=== PATIENT | male | born 1990 ===

== ENCOUNTER 2018-01-16 20:32 | Emergency (ER) | payer SELFPAY ==
--- NOTE | 2018-01-16 20:48 | ED PDOC ---
HPI: Psych/Substance Abuse Time Seen by Provider: 01/16/18 20:38 Chief Complaint (Nursing): Alcohol Ingestion Chief Complaint (Provider): Alcohol abuse ED Caveat: Uncooperative History Per: EMS History/Exam Limitations: intoxication Onset/Duration Of Symptoms: Days (today) Additional Complaint(s): Pt. found being aggressive at the bar. Police called and brought to the ER in handcuffs. Pt. aggressive and yelling at staff different things. Denies any pain. Admits to drinking etoh. Denies drugs. Limited H and P as pt. not cooperative and does not give appropriate responses to all questions. Past Medical History Reviewed: Nursing Documentation, Vital Signs Vital Signs: Last Vital Signs Temp Pulse Resp 18 01/16/18 20:36 BP Pulse Ox - Medical History Other PMH: unknown - Surgical History Other surgeries: unknown - Family History Family History: States: Unknown Family Hx - Allergies Allergies/Adverse Reactions: Allergies Allergy/AdvReac Type Severity Reaction Status Date / Time No Known Allergies Allergy Verified 01/16/18 20:36 Review of Systems Review Of Systems: ROS cannot be obtained secondary to pt's inabilty to answer questions. Physical Exam - Reviewed Nursing Documentation Reviewed: Yes Vital Signs Reviewed: Yes - Physical Exam Appears: Positive for: Uncomfortable Head Exam: Positive for: ATRAUMATIC, NORMAL INSPECTION, NORMOCEPHALIC Skin: Positive for: Normal Color, Warm, DRY Eye Exam: Positive for: Normal appearance, PERRL. Negative for: Periorbital swelling, Periorbital tenderness ENT: Positive for: Normal ENT Inspection Neck: Positive for: Normal, Painless ROM, Supple Cardiovascular/Chest: Positive for: Regular Rate, Rhythm Respiratory: Positive for: CNT, Normal Breath Sounds Gastrointestinal/Abdominal: Positive for: Normal Exam, Soft. Negative for: Tenderness Back: Positive for: Normal Inspection. Negative for: L CVA Tenderness, R CVA Tenderness Extremity: Positive for: Normal ROM. Negative for: Tenderness Neurologic/Psych: Positive for: Alert, Other (not cooperative and responding to questions selectively; moving all extremities and fighting with staff; aggressive.) - Laboratory Results Result Diagrams: 01/16/18 21:37 01/16/18 21:37 Interpretation Of Abn Labs: 175 alcohol - CT Scan/US ct Other Rad Studies (CT/US): Read By Radiologist Other Rad Interpretation: no acute - Progress ED Course And Treament: 2045: Pt. found to be aggressive and threat to self and staff. Will need to sedate due to acute psychosis likely from etoh abuse. 2352: Stable. Dr. Hampton to fu on sobriety. Here with alcohol intoxication. - Critical Care Total Time (In Min): 30 Documented Critical Care: Time excludes all time spent performint seperately billable procedures Disposition - Clinical Impression Clinical Impression: Alcohol abuse - Patient ED Disposition Is Patient to be Admitted: Transfer of Care - Disposition Disposition: Transfer of Care Disposition Time: 23:54 Condition: FAIR Patient Signed Over To: Karen Hampton
[2018-01-16 21:46] LABS: BASO % 0.2 % (0.0-2.0); EOS # 0.2 K/uL (0.0-0.7); EOS % 1.9 % (0.0-4.0); HEMOGLOBIN 14.7 g/dL (12.0-18.0); LYMPH # 1.5 K/uL (1.0-4.3); LYMPH % 17.7 % (20.0-40.0); MEAN CELL VOLUME 93.7 fl (80.0-94.0); MEAN CORPUSCULAR HEMOGLOBIN 32.3 pg (27.0-31.0); MEAN CORPUSCULAR HGB CONC 34.5 g/dL (33.0-37.0); MONO # 0.5 K/uL (0.0-0.8); MONO % 5.7 % (0.0-10.0); NEUT # 6.4 K/uL (1.8-7.0); NEUT % 74.5 % (50.0-75.0); RBC 4.56 Mil/uL (4.40-5.90); RED CELL DISTRIBUTION WIDTH 13.7 % (11.5-14.5); WHITE BLOOD COUNT 8.5 K/uL (4.8-10.8)
[2018-01-16 21:56] LABS: ALB/GLOB RATIO 1.7 (1.0-2.1); ALBUMIN 4.4 g/dL (3.5-5.0); ALT/SGPT 37 U/L (21-72); AST/SGOT 37 U/L (17-59); BLOOD UREA NITROGEN 20 mg/dl (9-20); CALCIUM 9.1 mg/dL (8.4-10.2); GFR NON-AFRICAN AMERICAN > 60
[2018-01-17 00:02] VITALS: TEMP 96.8
--- NOTE | 2018-01-17 00:12 | ED PDOC ---
- Laboratory Results Result Diagrams: 01/16/18 21:37 01/16/18 21:37 - ECG O2 Sat by Pulse Oximetry: 95 - Progress Re-evaluation Time: 05:20 Condition: Re-examined, Improved Medical Decision Making Medical Decision Makin Patient care endorsed from Dr. Church to Dr. Hampton pending clinical sobriety. Scribe Attestation: Documented by Mariposa Roman acting as a scribe for Karen Hampton MD Provider Scribe Attestation: All medical record entries made by the Scribe were at my direction and personally dictated by me. I have reviewed the chart and agree that the record accurately reflects my personal performance of the history, physical exam, medical decision making, and the department course for this patient. I have also personally directed, reviewed, and agree with the discharge instructions and disposition. Disposition Doctor Will See Patient In The: Office Counseled Patient/Family Regarding: Studies Performed, Diagnosis, Need For Followup - Clinical Impression Clinical Impression: Alcohol abuse - POA Present On Arrival: None - Disposition Referrals: [facility] [Outside] Disposition: Routine/Home Disposition Time: 05:20 Condition: GOOD Instructions: Alcohol Abuse and Alcoholism (DC)
[2018-01-17 05:29] VITALS: BP 134/82; PULSE 86; RESP 20; O2SAT 97
--- NOTE | 2018-01-17 07:01 | CARD ---
APPROVED REPORT Date of service: 01/16/2018 EKG Measurement Heart [id number] <Conclusion> Normal sinus rhythm T wave abnormality, consider inferior ischemia Abnormal ECG
--- NOTE | 2018-01-17 08:40 | CT ---
Date of service: 01/16/2018 PROCEDURE: CT HEAD WITHOUT CONTRAST. HISTORY: headache COMPARISON: None available. TECHNIQUE: Axial computed tomography images were obtained through the head/brain without intravenous contrast. Radiation dose: Total exam DLP = 819.25 mGy-cm. This CT exam was performed using one or more of the following dose reduction techniques: Automated exposure control, adjustment of the mA and/or kV according to patient size, and/or use of iterative reconstruction technique. FINDINGS: HEMORRHAGE: No intracranial hemorrhage. BRAIN: Normal isidro-white matter differentiation and density are appreciated throughout the cerebrum and cerebellum with the brainstem appearing unremarkable as well. There is no mass effect. There is no suspicious extra-axial fluid collection and the midline brain anatomy appears diffusely unremarkable. VENTRICLES: Unremarkable. No hydrocephalus. CALVARIUM: Unremarkable. PARANASAL SINUSES: Unremarkable as visualized. No significant inflammatory changes. MASTOID AIR CELLS: Unremarkable as visualized. No inflammatory changes. OTHER FINDINGS: None. IMPRESSION: Normal CT of the Head. Concordant preliminary report from [facility], 01/16/2018. .
== END 2018-01-17 05:43 | disposition home or self-care (01) ==
LOC: H.ER 20:32 → MERGE 20:32 → EDBD 20:32 → H.ER 01-17 05:43
DX: F10.10 Alcohol abuse, uncomplicated (principal)
CPT/HCPCS: 70450; 80053; 82948; 85025; 93005; 96372; 99285; G0480; J1630; J2060